=== PATIENT | male | born 2000 | race Two or more races ===

== ENCOUNTER 2024-07-29 11:10 | Outpatient (CLI) | payer BC ==
[2024-07-29 12:03] LABS: Hematocrit 46.5 % (42.0-52.0); Hemoglobin 16.3 g/dL (14.0-18.0); Mean Corpuscular HGB CONC 35.1 g/dL (32.0-36.0); Mean Corpuscular Hemoglobin 30.1 pg (27.0-31.0); Mean Corpuscular Volume 85.8 fL (78.0-98.0); Mean Platelet Volume 10.6 fL (7.4-10.4); Platelet Count 239 10x3/uL (130-400); RBC Distribution Width 12.3 % (11.5-14.5); Red Blood Cell (RBC) Count 5.42 mill/uL (4.70-6.10)
== END 2024-07-29 11:11 | disposition home or self-care (01) ==
LOC: EDBD → LABBT 11:10
PROVIDERS: ATTEND Orthopaedic Surgery
DX: Z01.812 Encounter for preprocedural laboratory examination (principal); G56.22 Lesion of ulnar nerve, left upper limb
CPT/HCPCS: 85027

== ENCOUNTER 2024-07-30 05:32 | Day surgery (SDC) | payer BC ==
[2024-07-30] MEDS ORDERED: Lidocaine 1% (PF) 30 ML VIAL ONE (06:28)
[2024-07-30] MEDS ORDERED: PROPOFOL 20 ML ONE (06:40)
[2024-07-30] MEDS ORDERED: Dexamethasone 20 MG/5 ML VIAL ONE (06:40)
[2024-07-30] MEDS ORDERED: Midazolam HCl 2 mg/2 ml Vial ONE (06:40)
[2024-07-30] MEDS ORDERED: fentaNYL PF 100 MCG/2 ML SYRINGE ONE ×2 (06:40→08:25)
[2024-07-30] MEDS ORDERED: Lidocaine 1% PF 5 ML VIAL ONE (06:40)
[2024-07-30] MEDS ORDERED: Ondansetron PF 4 MG/2 ML Vial ONE (06:40)
[2024-07-30] MEDS ORDERED: CEFAZOLIN 2 GM VIAL ONE (06:52)
[2024-07-30] MEDS ORDERED: fentaNYL 50 mcg/mL 1 mL Vial ONE (07:38)
[2024-07-30] MEDS ORDERED: Ketorolac Tromethamine 30 MG (1 mL) VIAL ONE (08:25)
[2024-07-30] MEDS ORDERED: Meperidine HCl/PF 25 MG (1 mL) VIAL ONE (09:07)
== END 2024-07-30 11:27 | disposition home or self-care (01) ==
LOC: SDC 05:32 → EDBD 13:00
PROVIDERS: ATTEND Orthopaedic Surgery
PROC: 01N40ZZ Release Ulnar Nerve, Open Approach (ICD-10-PCS; principal; 2024-07-30)
DX: G56.22 Lesion of ulnar nerve, left upper limb (principal); Z91.011 Allergy to milk products; Z79.899 Other long term (current) drug therapy
CPT/HCPCS: A6223; J1100; J1885; J2175; J2250; J2405; J2704; J3010